=== PATIENT | male | born 1930 | race Caucasian/White ===

== ENCOUNTER 2017-05-14 21:23 | Emergency (ER) | payer MEDICARE ==
[~2017-05-14] VITALS: Ht 171.4 cm; Wt 82.9 kg
[~2017-05-14 21:23] MED LIST: ASPI-496 PO; CLOP75TA22 PO; LISI-167 PO; METO-93; METO200T3 PO; NITR0.4T PO; TERA1CAP3 PO
[2017-05-14 21:25] VITALS: BP 130/83
== END 2017-05-14 22:55 | disposition left against medical advice (07) ==
LOC: ED 22:49
DX: R03.0 Elevated blood-pressure reading, without diagnosis of hypertension (principal); Z53.21 Procedure and treatment not carried out due to patient leaving prior to being seen by health care provider

== ENCOUNTER 2018-06-15 21:11 | Emergency (ER) | payer MEDICARE ==
[~2018-06-15] VITALS: Ht 170.2 cm; Wt 85.0 kg
[~2018-06-15 21:11] MED LIST changes: -CLOP75TA22 PO; +CLOP75TA52 PO; -METO200T3 PO; +METO200T47 PO
[2018-06-15 21:14] VITALS: BP 169/98
[2018-06-15] MEDS ORDERED: PINK LADY ENEMA 490 ML BOTTLE PR STA (22:19)
[2018-06-15 22:22] LABS: MICROSCOPIC NOT IND
[2018-06-15 22:26] LABS: CULTURE INDICATED? YES
[2018-06-16] MEDS ORDERED: GOLYTELY 4,000ML ORAL.SOL PO ONE (00:30)
== END 2018-06-16 00:55 | disposition home or self-care (01) ==
LOC: ED 23:28
DX: K59.00 Constipation, unspecified (principal); I11.0 Hypertensive heart disease with heart failure; I50.9 Heart failure, unspecified; I25.10 Atherosclerotic heart disease of native coronary artery without angina pectoris; I25.2 Old myocardial infarction
CPT/HCPCS: 74021; 81003; 87086; 99285